=== PATIENT | female | born 1935 | race Hispanic/Latino ===

== ENCOUNTER → 2024-06-07 | Outpatient (CLI) | payer MEDICARE ==
[~2024-06-07] MED LIST: CETI-89 PO; ESCI-8 PO; ESOM40CA66 PO; FAMO20TA8 PO; LEVO75TA10 PO; MOME17SP12 NS; MONT-39 PO; PANT40TA54 PO; RALO60TA13 PO; VIT-10 PO
--- NOTE | 2024-06-07 11:22 | HMCIMG ---
DEXA BONE DENSITY SURVEY HISTORY: Osteoporosis COMPARISON: None FINDINGS: Bone densitometry study was performed. Bone mineral density of the lumbar spine is 1.293 gram per centimeter square which corresponds to a T score of 2.2 . Bone mineral density of the left hip is 0.853 grams per centimeter square which corresponds to a T score of -0.8 . IMPRESSION: 1. Osteopenia of the lumbar spine and normal bone mineral density of left hip.
== END | disposition home or self-care (01) ==
LOC: RAH 10:10
PROVIDERS: ATTEND Internal Medicine
DX: M81.8 Other osteoporosis without current pathological fracture (principal); M85.89 Other specified disorders of bone density and structure, multiple sites
CPT/HCPCS: 77080